=== PATIENT | male | born 1975 | race Caucasian/White ===

== ENCOUNTER 2024-03-12 21:01 | Emergency (ER) | payer MEDICAID ==
[~2024-03-12] VITALS: Ht 180.3 cm; Wt 111.1 kg
[2024-03-12 21:15] VITALS: BP_SYST 156; PULSE 71; RESP 20; TEMP 98.1; O2SAT 97
[2024-03-12] MEDS ORDERED: FOLIC ACID 5 MG/ML VIAL IV ONE (21:43)
[2024-03-12] MEDS ORDERED: THIAMINE HCL 200 MG/2 ML VIAL ONE (21:43)
[2024-03-12] MEDS ORDERED: MAGNESIUM SULFATE 1 GM/2 ML VIAL ONE (21:43)
[2024-03-12] MEDS ORDERED: MVI 10 ML VIAL IV ONE (21:43)
[2024-03-12 21:44] LABS: HEMATOCRIT 42.8 % (36-54); HEMOGLOBIN 14.8 g/dL (14.0-18.0); MEAN CORPUSCULAR HEMOGLOBIN 29 pg (27-31); MEAN CORPUSCULAR HGB CONC 35 % (32-36); MEAN CORPUSCULAR VOLUME 85 fL (79.0-98.0); RED BLOOD CELL COUNT(AUTO) 5.05 MIL/uL (4.2-6.2); RED CELL DISTRIBUTION WIDTH 14.2 % (9.0-15.0); WHITE BLOOD COUNT (AUTO) 2.5 K/uL (4.8-10.8)
[2024-03-12] MEDS: LORazepam 2 MG/ML VIAL IVP ONE ×2 (21:46→22:51)
[2024-03-12] MEDS: FOLIC ACID 1 MG, THIAMINE HCL 100 MG, MAGNESIUM SULFATE 1 GM, MVI 10 ML in NACL 0.9% 1,... IV ONE (21:49)
[2024-03-12 22:03] LABS: ALANINE AMINOTRANSFERASE 56 U/L (12-78); ALBUMIN 3.6 g/dL (3.4-4.8); ANION GAP 12 (5-15); ASPARTATE AMINOTRANSFERASE 46 U/L (10-37); BILIRUBIN,DIRECT 0.2 mg/dL (0.0-0.3); CALCIUM 8.9 mg/dL (8.4-11.0); CARBON DIOXIDE 25 mmol/L (23-29); CHLORIDE 99 mmol/L (98-107); CREATININE 0.73 mg/dL (0.55-1.30); GFR AFRICAN AMERICAN 148 mL/min (>90); GFR NON AFRICAN-AMERICAN 122 mL/min (>90); GLUCOSE 106 mg/dL (74-106); LIPASE 24 U/L (16-77); POTASSIUM 3.5 mmol/L (3.5-5.1); SODIUM SERUM 136 mmol/L (136-145); TOTAL BILIRUBIN 0.9 mg/dL (0.0-1.0); TOTAL PROTEIN, SERUM 7.3 g/dL (6.4-8.3); UREA NITROGEN, BLOOD 8 mg/dL (8-21)
[2024-03-12 22:09] LABS: ALCOHOL, BLOOD < 3 mg/dL (<10)
[2024-03-12 22:14] LABS: BARBITURATE, URINE NEGATIVE (NEG <=200); BENZODIAZEPINE, URINE NEGATIVE (NEG <=150); CANNABINOID, URINE NEGATIVE (NEG <=50); COCAINE, URINE NEGATIVE (NEG <=150); METHAMPHETAMINES SCREEN,URINE NEGATIVE (NEG <=500); OPIATE, URINE NEGATIVE (NEG <=100); PHENCYCLIDINE SCREEN,URINE NEGATIVE (NEG <=25); UR TRICYCLIC ANTIDEPRESSANTS NEGATIVE (NEG <=300); URINE AMPHETAMINE NEGATIVE (NEG <=500); URINE METHADONE NEGATIVE (NEG <=200); URINE OXYCODONE SCREEN NEGATIVE (NEG <=100)
[2024-03-12] MEDS: ONDANSETRON HCL 4 MG/2 ML VIAL IVP ONE (22:47)
[2024-03-12 22:56] LABS: BAND % (MANUAL) 0 % (0-6); BASOPHILS % (MANUAL) 0 % (0-2); EOSINOPHILS % (MANUAL) 0 % (0-7); LYMPHOCYTES % (MANUAL) 12 % (20-46); MONOCYTES % (MANUAL) 14 % (0-11); OVALOCYTES FEW; PLATELET ESTIMATE DECREASED (ADEQUATE); TEAR DROP CELLS FEW
[2024-03-12 22:57] LABS: PLATELET COUNT (AUTO) 103 K/uL (130-430)
[2024-03-13] MEDS ORDERED: ONDA-8 TL (00:06)
[2024-03-13] MEDS ORDERED: THIA100T70 PO (00:06)
[2024-03-13] MEDS ORDERED: CHLO25CA11 PO (00:06)
[2024-03-13 00:15] VITALS: BP_SYST 129; PULSE 74; RESP 15; TEMP 97.7; O2SAT 97
== END 2024-03-13 00:15 | disposition home or self-care (01) ==
LOC: SED 21:01
DX: F10.939 Alcohol use, unspecified with withdrawal, unspecified (principal); D72.819 Decreased white blood cell count, unspecified; D69.6 Thrombocytopenia, unspecified; R74.01 Elevation of levels of liver transaminase levels; Z79.899 Other long term (current) drug therapy; Z79.2 Long term (current) use of antibiotics; Y90.0 Blood alcohol level of less than 20 mg/100 ml
CPT/HCPCS: 99291; 96365; 96375; 96366; 85027; 80307; 80076; 80048; 83690; 85007; 36415; 96376; G0482; J3490; J2060; J3475; J2405; J3411

== ENCOUNTER 2024-03-28 11:35 | Inpatient (IN) | payer MEDICAID ==
[~2024-03-28] VITALS: Ht 180.3 cm; Wt 79.4 kg
[~2024-03-28 11:35] MED LIST: CHLO25CA11 PO; ONDA-8 TL; THIA100T70 PO
[2024-03-28 11:39] VITALS: BP_SYST 123; PULSE 106; RESP 18; TEMP 97.1; O2SAT 96
[2024-03-28] MEDS ORDERED: FOLIC ACID 1 MG, THIAMINE HCL 100 MG, MAGNESIUM SULFATE 1 GM, MVI 10 ML in NACL 0.9% 1,... IV ONE (12:00)
[2024-03-28] MEDS ORDERED: MAGNESIUM SULFATE 1 GM/2 ML VIAL ONE (12:13)
[2024-03-28] MEDS ORDERED: THIAMINE HCL 200 MG/2 ML VIAL ONE (12:13)
[2024-03-28] MEDS ORDERED: FOLIC ACID 5 MG/ML VIAL IV ONE (12:13)
[2024-03-28] MEDS ORDERED: MVI 10 ML VIAL IV ONE (12:13)
[2024-03-28 12:14] LABS: EOSINOPHILS % (AUTO) 1.3 % (0.0-4.0); HEMATOCRIT 43.7 % (36-54); HEMOGLOBIN 14.6 g/dL (14.0-18.0); LYMPHOCYTES # (AUTO) 0.4 K/uL (1.0-5.5); LYMPHOCYTES % (AUTO) 16.1 % (20.5-51.5); MEAN CORPUSCULAR HEMOGLOBIN 29 pg (27-31); MEAN CORPUSCULAR HGB CONC 34 % (32-36); MEAN CORPUSCULAR VOLUME 88 fL (79.0-98.0); MONOCYTES # (AUTO) 0.3 K/uL (0.0-1.0); MONOCYTES % (AUTO) 10.7 % (1.7-9.3); NEUTROPHILS # (AUTO) 1.9 K/uL (1.8-7.7); NEUTROPHILS % (AUTO) 70.9 % (40.0-70.0); PLATELET COUNT (AUTO) 106 K/uL (130-430); RED BLOOD CELL COUNT(AUTO) 4.98 MIL/uL (4.2-6.2); RED CELL DISTRIBUTION WIDTH 15.8 % (9.0-15.0); WHITE BLOOD COUNT (AUTO) 2.7 K/uL (4.8-10.8)
[2024-03-28 12:38] LABS: ALBUMIN 3.8 g/dL (3.4-4.8); CALCIUM 8.9 mg/dL (8.4-11.0); CREATININE 0.96 mg/dL (0.55-1.30); TOTAL BILIRUBIN 0.5 mg/dL (0.0-1.0); TOTAL PROTEIN, SERUM 7.5 g/dL (6.4-8.3)
[2024-03-28 12:39] LABS: BILIRUBIN,DIRECT 0.2 mg/dL (0.0-0.3)
[2024-03-28] MEDS: THIAMINE HCL 100 MG, MAGNESIUM SULFATE 1 GM in NS 100 ML IV ONE ×2 (13:15→16:00)
[2024-03-28] MEDS: FOLIC ACID 1 MG, MVI 10 ML in NACL 0.9% 1,000 ML IV ONE ×2 (13:15→16:00)
[2024-03-28] MEDS: ONDANSETRON HCL 4 MG/2 ML VIAL IVP ONE (13:29)
[2024-03-28 13:43] LABS: BARBITURATE, URINE NEGATIVE (NEG <=200); BENZODIAZEPINE, URINE POSITIVE (NEG <=150); CANNABINOID, URINE NEGATIVE (NEG <=50); COCAINE, URINE NEGATIVE (NEG <=150); METHAMPHETAMINES SCREEN,URINE NEGATIVE (NEG <=500); OPIATE, URINE NEGATIVE (NEG <=100); PHENCYCLIDINE SCREEN,URINE NEGATIVE (NEG <=25); UR TRICYCLIC ANTIDEPRESSANTS NEGATIVE (NEG <=300); URINE AMPHETAMINE NEGATIVE (NEG <=500); URINE METHADONE NEGATIVE (NEG <=200); URINE OXYCODONE SCREEN NEGATIVE (NEG <=100)
[2024-03-28] MEDS ORDERED: FOLIC ACID 1 MG, THIAMINE HCL 100 MG, MAGNESIUM SULFATE 1 GM, MVI 10 ML in NACL 0.9% 1,... IV SCH (14:30)
[2024-03-28 20:41] VITALS: BP_SYST 123; PULSE 81; RESP 18; TEMP 98.6
[2024-03-28] MEDS: LORazepam 2 MG/ML VIAL IVP PRN (21:24)
[2024-03-28] MEDS ORDERED: NALOXONE HCL 0.4 MG/ML AMP (NARCAN) IVP PRN ×2 (22:30)
[2024-03-28] MEDS ORDERED: ACETAMINOPHEN 325 MG TABLET PO PRN (22:30)
[2024-03-28] MEDS: chlordiazePOXIDE HCL 25 MG CAPSULE PO PRN (22:55)
[2024-03-28] MEDS: traZODone HCL 50 MG TABLET (DESYREL) PO PRN (22:55)
[2024-03-28] MEDS: HYDROcodone/ACETAMIN 5-325 MG TAB (NORCO/ VICODIN) PO PRN (22:56)
[2024-03-28] MEDS: ONDANSETRON HCL 4 MG/2 ML VIAL IVP PRN (23:07)
[2024-03-29] VITALS: BP_SYST 123; PULSE 68; RESP 18; TEMP 97.9; O2SAT 97
[2024-03-29] MEDS: POTASSIUM CHLORIDE 20 MEQ TABLET.ER PO ONE ×2 (04:05→16:41)
[2024-03-29 05:07] LABS: BASOPHILS % (AUTO) 0.9 % (0.0-2.0); EOSINOPHILS # (AUTO) 0.1 K/uL (0.0-0.4); EOSINOPHILS % (AUTO) 2.8 % (0.0-4.0); HEMATOCRIT 39.2 % (36-54); HEMOGLOBIN 13.2 g/dL (14.0-18.0); LYMPHOCYTES # (AUTO) 0.5 K/uL (1.0-5.5); LYMPHOCYTES % (AUTO) 24.7 % (20.5-51.5); MEAN CORPUSCULAR HEMOGLOBIN 29 pg (27-31); MEAN CORPUSCULAR HGB CONC 34 % (32-36); MEAN CORPUSCULAR VOLUME 87 fL (79.0-98.0); MONOCYTES # (AUTO) 0.2 K/uL (0.0-1.0); MONOCYTES % (AUTO) 10.9 % (1.7-9.3); NEUTROPHILS # (AUTO) 1.3 K/uL (1.8-7.7); NEUTROPHILS % (AUTO) 60.7 % (40.0-70.0); PLATELET COUNT (AUTO) 83 K/uL (130-430); RED BLOOD CELL COUNT(AUTO) 4.48 MIL/uL (4.2-6.2); RED CELL DISTRIBUTION WIDTH 15.8 % (9.0-15.0); WHITE BLOOD COUNT (AUTO) 2.1 K/uL (4.8-10.8)
[2024-03-29] MEDS: NORMAL SALINE 5 ML DISP.SYRIN IVF SCH (05:18)
[2024-03-29 05:29] LABS: CALCIUM 8.2 mg/dL (8.4-11.0); CREATININE 0.76 mg/dL (0.55-1.30); POTASSIUM 3.3 mmol/L (3.5-5.1)
[2024-03-29 08:27] VITALS: BP_SYST 130; PULSE 62; RESP 16; TEMP 97.1; O2SAT 95
[2024-03-29] MEDS: MULTIVITAMINS TAB 1 TABLET PO SCH (08:33)
[2024-03-29] MEDS: FOLIC ACID 1 MG TABLET PO SCH (08:33)
[2024-03-29] MEDS: THIAMINE HCL 100 MG TABLET PO SCH (08:33)
[2024-03-29] MEDS: HYDROcodone/ACETAMIN 10-325 MG TAB PO PRN (08:34)
[2024-03-29] MEDS ORDERED: THIAMINE MONONITRATE PO SCH (09:00)
[2024-03-29 09:57] VITALS: O2SAT 95
[2024-03-29 11:00] VITALS: BP_SYST 128; PULSE 77; RESP 16; TEMP 97.7; O2SAT 95
[2024-03-29 16:00] VITALS: BP_SYST 127; PULSE 65; RESP 18; TEMP 96.7; O2SAT 97
[2024-03-29 20:00] VITALS: BP_SYST 128; PULSE 67; RESP 18; TEMP 97.8; O2SAT 96
[2024-03-30] VITALS: BP_SYST 134; PULSE 62; RESP 18; TEMP 97.7; O2SAT 97
[2024-03-30 07:30] VITALS: BP_SYST 132; PULSE 60; RESP 16; TEMP 97.4; O2SAT 94
[2024-03-30 09:30] VITALS: O2SAT 94
[2024-03-30] MEDS ORDERED: CHLO25CA10 PO (10:31)
[2024-03-30] MEDS ORDERED: FOLI-43 PO (10:31)
[2024-03-30] MEDS ORDERED: MULT-1117 PO (10:31)
[2024-03-30 11:14] VITALS: BP_SYST 135; PULSE 64; RESP 16; TEMP 98.2; O2SAT 98
[2024-03-30 15:14] VITALS: BP_SYST 138; PULSE 69; RESP 15; TEMP 97.7; O2SAT 98
[2024-03-30 15:47] VITALS: BP_SYST 136; PULSE 106; RESP 22; TEMP 97.6; O2SAT 97
== END 2024-03-30 16:25 | disposition home or self-care (01) | DRG 775 ==
LOC: SED 11:35 → STU 14:32 → SMU 03-29 15:56
PROVIDERS: ADMIT Preventive Medicine Preventive Medicine/Occupational Environmental Medicine; ATTEND Preventive Medicine Preventive Medicine/Occupational Environmental Medicine
DX: F10.139 Alcohol abuse with withdrawal, unspecified (principal); F10.129 Alcohol abuse with intoxication, unspecified; R65.10 Systemic inflammatory response syndrome (SIRS) of non-infectious origin without acute organ dysfunction; R53.81 Other malaise; Z72.0 Tobacco use; Y90.8 Blood alcohol level of 240 mg/100 ml or more
CPT/HCPCS: 36415; 73030; 80048; 80076; 80307; 82140; 83690; 85025; 96365; 96375; 97112-GP; 97116-GP; 99285; G0378; G0482; J2060; J2405; J3411; J3475; J3490; J7030